=== PATIENT | female | born 1990 | race Caucasian/White ===

== ENCOUNTER → 2021-06-06 | Outpatient (CLI) | payer OTHER ==
[2021-06-06 11:49] LABS: ALT/SGPT 27 U/L (12-78); TRIGLYCERIDES LEVEL 83 MG/DL (<150)
[2021-06-06 11:50] LABS: HCG, SERUM QUALITATIVE NEGATIVE (NEGATIVE)
== END ==
LOC: M LAB 06-05 15:30
DX: L70.0 Acne vulgaris (principal)

== ENCOUNTER → 2021-07-23 | Outpatient (CLI) | payer OTHER ==
[2021-07-23 15:18] LABS: HCG, SERUM QUALITATIVE NEGATIVE (NEGATIVE)
[2021-07-23 15:20] LABS: ALT/SGPT 25 U/L (12-78); TRIGLYCERIDES LEVEL 96 MG/DL (<150)
== END ==
LOC: M LAB 13:45
PROVIDERS: ATTEND Physician Assistant Medical
DX: L70.0 Acne vulgaris (principal)

== ENCOUNTER → 2021-08-31 | Outpatient (CLI) | payer OTHER | LOC: M LAB 09:07 | PROVIDERS: ATTEND Physician Assistant Medical | DX: L70.0 Acne vulgaris (principal) ==